=== PATIENT | female | born 1950 | race Caucasian/White ===

== ENCOUNTER 2017-06-19 00:54 | Inpatient (IN) | payer OTHER, MEDICAID ==
[2017-06-19] VITALS (8 sets, daily range): BP systolic 117–169; BP diastolic 60–75; Ht 172.7 cm; Wt 67.7 kg
[~2017-06-19] VITALS: Ht 172.7 cm; Wt 67.7 kg
[~2017-06-19 00:54] MED LIST: A/B OTIC15 ML; ANT12.5 PO; ASPIRIN81 MG PO; ATORVASTATIN CA40 M1 PO; COL250 PO; GABAPENTIN300 M2 PO; GLIPIZIDE5 MG PO; IBU-6600 MG PO; LIPI20 PO; LOSARTAN POTASS25 M1 PO; METFORMIN HCL1000 MG PO; METFORMIN HCL500 MG PO; NOVOLOG100 U/ML SC; PERCOCET1 TA3 PO; PRILOSEC20 MG PO
[2017-06-19 02:05] LABS: BASOPHIL % 0.5 % (0-2); PLATELET COUNT 338 x10^3mcL (130-400); RED CELL DISTRIBUTION WIDTH 13.6 % (11.5-14.5)
[2017-06-19 02:25] LABS: CARBON DIOXIDE 30.5 mmol/L (21-32); CHLORIDE SERUM 91 mmol/L (98-107); CREATININE SERUM 0.6 mg/dL (0.6-1.0); GFR1 > 60 mL/min; GLUCOSE SERUM 190 mg/dL (74-106); POTASSIUM SERUM 3.9 mmol/L (3.5-5.1); SODIUM SERUM 129 mmol/L (136-145)
[2017-06-19 02:29] LABS: ALKALINE PHOSPHATASE 93 U/L (46-116); ALT/SGPT 28 U/L (14-59); AST/SGOT 21 U/L (15-37); BILIRUBIN TOTAL 0.28 mg/dL (0.20-1.00); TOTAL PROTEIN, SERUM 7.5 g/dL (6.4-8.2)
[2017-06-19 02:35] LABS: ALBUMIN 3.1 g/dL (3.4-5.0)
[2017-06-19] MEDS ORDERED: PROVENTIL0.09 MG/A1 (03:13)
[2017-06-19 03:31] LABS: UA SPECIFIC GRAVITY 1.015 (1.005-1.035); microscopic required? YES; urine erythrocyte TRACE (NEGATIVE)
[2017-06-19] MEDS ORDERED: BENZONATATE200 MG PO (04:48)
[2017-06-19 05:09] LABS: MAGNESIUM 1.6 mg/dL (1.8-2.4); PHOSPHOROUS 3.7 mg/dL (2.5-4.9)
[2017-06-19 05:11] LABS: CHOLESTEROL/HDL RATIO 2.5
[2017-06-19 05:17] LABS: FREE T4 1.56 ng/dL (0.76-1.46); FREE THYROXINE INDEX 4.2 ug/dL (1.4-4.5); T4(THYROXINE) 10.7 ug/dL (4.7-13.3)
[2017-06-19 05:19] LABS: T3 TOTAL 1.04 ng/mL
[2017-06-19 19:21] LABS: CALCIUM 9.5 mg/dL (8.5-10.1); CARBON DIOXIDE 28.8 mmol/L (21-32); CHLORIDE SERUM 93 mmol/L (98-107); CREATININE SERUM 0.6 mg/dL (0.6-1.0); GFR1 > 60 mL/min; GLUCOSE SERUM 257 mg/dL (74-106); SODIUM SERUM 129 mmol/L (136-145)
[2017-06-20 05:03] VITALS: BP 131/62
[2017-06-20 06:38] LABS: BASOPHIL % 0.1 % (0-2); PLATELET COUNT 309 x10^3mcL (130-400)
[2017-06-20 07:18] LABS: CALCIUM 9.5 mg/dL (8.5-10.1); CARBON DIOXIDE 29.1 mmol/L (21-32); CHLORIDE SERUM 94 mmol/L (98-107); CREATININE SERUM 0.5 mg/dL (0.6-1.0); GFR1 > 60 mL/min; GLUCOSE SERUM 255 mg/dL (74-106); MAGNESIUM 1.8 mg/dL (1.8-2.4); POTASSIUM SERUM 4.7 mmol/L (3.5-5.1); SODIUM SERUM 130 mmol/L (136-145)
[2017-06-20 09:59] VITALS: BP 124/56
[2017-06-20 13:16] VITALS: BP 138/64
[2017-06-20 17:32] VITALS: BP 137/61
[2017-06-20 19:30] VITALS: BP 122/55
[2017-06-20 21:13] VITALS: BP 126/63
[2017-06-21 05:16] VITALS: BP 125/60
[2017-06-21 07:34] LABS: CALCIUM 8.7 mg/dL (8.5-10.1); CARBON DIOXIDE 28.7 mmol/L (21-32); CHLORIDE SERUM 95 mmol/L (98-107); CREATININE SERUM 0.5 mg/dL (0.6-1.0); GFR1 > 60 mL/min; GLUCOSE SERUM 158 mg/dL (74-106); PHOSPHOROUS 3.2 mg/dL (2.5-4.9); POTASSIUM SERUM 4.2 mmol/L (3.5-5.1); SODIUM SERUM 130 mmol/L (136-145)
[2017-06-21 07:35] LABS: PLATELET COUNT 370 x10^3mcL (130-400); RED CELL DISTRIBUTION WIDTH 13.1 % (11.5-14.5)
[2017-06-21 09:34] VITALS: BP 154/65
[2017-06-21 10:27] LABS: BAND NEUTROPHIL 5 % (0-10); BASOPHIL 0 % (0-2); MONOCYTE 10 % (0-7); SEGMENTED NEUTROPHILS 59 % (37-75)
[2017-06-21 13:26] VITALS: BP 147/74
[2017-06-21 16:38] VITALS: BP 130/54
[2017-06-21 20:30] VITALS: BP 164/58
[2017-06-22 05:14] VITALS: BP 122/55
[2017-06-22] MEDS ORDERED: LIPI10 PO (06:21)
[2017-06-22] MEDS ORDERED: COZ25 PO (06:23)
[2017-06-22] MEDS ORDERED: ECO81 PO (06:25)
[2017-06-22 06:40] LABS: BASOPHIL % 0.3 % (0-2); PLATELET COUNT 309 x10^3mcL (130-400); RED CELL DISTRIBUTION WIDTH 13.9 % (11.5-14.5)
[2017-06-22 07:11] LABS: CALCIUM 8.5 mg/dL (8.5-10.1); CARBON DIOXIDE 29.2 mmol/L (21-32); CHLORIDE SERUM 96 mmol/L (98-107); CREATININE SERUM 0.5 mg/dL (0.6-1.0); GFR1 > 60 mL/min; GLUCOSE SERUM 150 mg/dL (74-106); MAGNESIUM 1.6 mg/dL (1.8-2.4); PHOSPHOROUS 3.9 mg/dL (2.5-4.9); POTASSIUM SERUM 4.1 mmol/L (3.5-5.1); SODIUM SERUM 132 mmol/L (136-145)
[2017-06-22 09:30] VITALS: BP 122/55
[2017-06-22] MEDS ORDERED: THERA TABS1 TAB PO (09:32)
[2017-06-22] MEDS ORDERED: AMB5 PO (09:38)
[2017-06-22] MEDS ORDERED: MONTELUKAST SOD10 M1 PO (09:40)
[2017-06-22] MEDS ORDERED: LAC PO (09:43)
[2017-06-22] MEDS ORDERED: HUMALOG MIX 50/10 ML SC (09:48)
[2017-06-22] MEDS ORDERED: LEVAQUIN750 MG PO (09:50)
[2017-06-22] MEDS ORDERED: MEDDP PO (10:02)
[2017-06-22] MEDS ORDERED: GLU850 PO (10:06)
[2017-06-22] MEDS ORDERED: IBUPROFEN400 MG PO (10:08)
[2017-06-22 10:20] VITALS: BP 143/60
== END 2017-06-22 12:31 | disposition home or self-care (01) | DRG 190 ==
LOC: ED 00:54 → DU 03:10
PROVIDERS: Emergency Medicine; ADMIT Family Medicine
DX: J44.1 Chronic obstructive pulmonary disease with (acute) exacerbation (principal); J96.00 Acute respiratory failure, unspecified whether with hypoxia or hypercapnia; N17.0 Acute kidney failure with tubular necrosis; E87.1 Hypo-osmolality and hyponatremia; E44.0 Moderate protein-calorie malnutrition; F43.21 Adjustment disorder with depressed mood; R13.10 Dysphagia, unspecified; E83.42 Hypomagnesemia; E11.65 Type 2 diabetes mellitus with hyperglycemia; E11.51 Type 2 diabetes mellitus with diabetic peripheral angiopathy without gangrene; I25.2 Old myocardial infarction; Z68.21 Body mass index [BMI] 21.0-21.9, adult; Z79.4 Long term (current) use of insulin; Z79.82 Long term (current) use of aspirin; Z86.73 Personal history of transient ischemic attack (TIA), and cerebral infarction without residual deficits; Z63.4 Disappearance and death of family member
CPT/HCPCS: 36600; 83880; 84439; 92610-GN; 94150; C9113; J0456; J0696; J1817; J1885; J1956; J2930; J3475; J3490; J7030; J7613; J7620; J7626; J7644; Q0092

== ENCOUNTER 2017-06-30 12:35 | Inpatient (IN) | payer OTHER, MEDICAID ==
[~2017-06-30] VITALS: Ht 172.7 cm; Wt 84.5 kg
[~2017-06-30 12:35] MED LIST changes: +AMB5 PO; +BENZONATATE200 MG PO; +COZ25 PO; +ECO81 PO; +GLU850 PO; +HUMALOG MIX 50/10 ML SC; +IBUPROFEN400 MG PO; +LAC PO; +LEVAQUIN750 MG PO; +LIPI10 PO; +MEDDP PO; +MONTELUKAST SOD10 M1 PO; +PROVENTIL0.09 MG/A1; +THERA TABS1 TAB PO
[2017-06-30 13:14] LABS: BASOPHIL % 0.2 % (0-2); PLATELET COUNT 368 x10^3mcL (130-400); RED CELL DISTRIBUTION WIDTH 13.2 % (11.5-14.5)
[2017-06-30 14:02] LABS: ALBUMIN 3.4 g/dL (3.4-5.0); ALKALINE PHOSPHATASE 124 U/L (46-116); ALT/SGPT 32 U/L (14-59); AST/SGOT 25 U/L (15-37); BILIRUBIN TOTAL 0.5 mg/dL (0.20-1.00); CHLORIDE SERUM 85 mmol/L (98-107); CREATININE SERUM 0.5 mg/dL (0.6-1.0); GFR1 > 60 mL/min; GLUCOSE SERUM 179 mg/dL (74-106); POTASSIUM SERUM 3.7 mmol/L (3.5-5.1); TOTAL PROTEIN, SERUM 7.7 g/dL (6.4-8.2)
[2017-06-30 14:37] LABS: SODIUM SERUM 123 mmol/L (136-145)
[2017-06-30 17:39] LABS: MAGNESIUM 1.7 mg/dL (1.8-2.4); PHOSPHOROUS 3.5 mg/dL (2.5-4.9)
[2017-06-30 17:51] LABS: FREE T4 1.94 ng/dL (0.76-1.46); FREE THYROXINE INDEX 4.9 ug/dL (1.4-4.5); T4(THYROXINE) 12.2 ug/dL (4.7-13.3)
[2017-06-30 18:05] VITALS: BP 168/84
[2017-06-30 18:28] VITALS: BP 168/84
[2017-06-30 18:50] LABS: T3 TOTAL 0.89 ng/mL
[2017-06-30 21:05] VITALS: BP 148/68
[2017-07-01] VITALS (7 sets, daily range): BP systolic 115–193; BP diastolic 50–103
[2017-07-01 00:21] LABS: microscopic required? YES; urine erythrocyte 1+ (NEGATIVE)
[2017-07-01 00:29] LABS: AMPHETAMINE QUAL UR NONE DETECTED (NEG <=1000)
[2017-07-01 08:03] LABS: PLATELET COUNT 353 x10^3mcL (130-400); RED CELL DISTRIBUTION WIDTH 13.3 % (11.5-14.5)
[2017-07-01 08:20] LABS: CALCIUM 9.4 mg/dL (8.5-10.1); CARBON DIOXIDE 26.4 mmol/L (21-32); CHLORIDE SERUM 88 mmol/L (98-107); CREATININE SERUM 0.4 mg/dL (0.6-1.0); GFR1 > 60 mL/min; GLUCOSE SERUM 250 mg/dL (74-106); MAGNESIUM 1.8 mg/dL (1.8-2.4); PHOSPHOROUS 3.8 mg/dL (2.5-4.9); POTASSIUM SERUM 3.9 mmol/L (3.5-5.1)
[2017-07-01 08:22] LABS: SODIUM SERUM 124 mmol/L (136-145)
[2017-07-01 09:40] LABS: BASOPHIL % 0 % (0-2)
[2017-07-01 11:04] LABS: URIC ACID 2.4 mg/dL (2.6-6.0)
[2017-07-02 05:43] VITALS: BP 160/68
[2017-07-02 06:53] LABS: RED CELL DISTRIBUTION WIDTH 14.1 % (11.5-14.5)
[2017-07-02 07:30] LABS: CALCIUM 9.8 mg/dL (8.5-10.1); CARBON DIOXIDE 28.6 mmol/L (21-32); CHLORIDE SERUM 91 mmol/L (98-107); CREATININE SERUM 0.4 mg/dL (0.6-1.0); GFR1 > 60 mL/min; GLUCOSE SERUM 152 mg/dL (74-106); MAGNESIUM 1.9 mg/dL (1.8-2.4); PHOSPHOROUS 3.9 mg/dL (2.5-4.9); POTASSIUM SERUM 4.4 mmol/L (3.5-5.1)
[2017-07-02 07:51] LABS: SODIUM SERUM 122 mmol/L (136-145)
[2017-07-02 09:27] VITALS: BP 160/64
[2017-07-02 10:01] LABS: PLATELET COUNT 431 x10^3mcL (130-400)
[2017-07-02 12:29] VITALS: BP 170/85
[2017-07-02 15:16] LABS: BAND NEUTROPHIL 7 % (0-10); MONOCYTE 5 % (0-7); SEGMENTED NEUTROPHILS 84 % (37-75)
[2017-07-02 15:17] LABS: rbc morphology (normal/abnorm) NORMAL (NORMAL)
[2017-07-02 15:18] LABS: PLATELET MORPHOLOGY LARGE PLATELET SEEN
[2017-07-02 18:58] VITALS: BP 189/85
[2017-07-02 23:04] VITALS: BP 140/71
[2017-07-03] VITALS (16 sets, daily range): BP systolic 54–140; BP diastolic 27–78
[2017-07-03 02:55] LABS: CALCIUM 9.1 mg/dL (8.5-10.1); CARBON DIOXIDE 31.3 mmol/L (21-32); CHLORIDE SERUM 93 mmol/L (98-107); CREATININE SERUM 0.7 mg/dL (0.6-1.0); GFR1 > 60 mL/min; GLUCOSE SERUM 244 mg/dL (74-106); POTASSIUM SERUM 4.6 mmol/L (3.5-5.1); SODIUM SERUM 130 mmol/L (136-145)
[2017-07-03 05:18] LABS: PLATELET COUNT 359 x10^3mcL (130-400); RED CELL DISTRIBUTION WIDTH 13.8 % (11.5-14.5)
[2017-07-03 05:49] LABS: BASOPHIL % 0 % (0-2)
[2017-07-03 06:13] LABS: CALCIUM 9.1 mg/dL (8.5-10.1); CARBON DIOXIDE 26.7 mmol/L (21-32); CHLORIDE SERUM 93 mmol/L (98-107); CREATININE SERUM 0.8 mg/dL (0.6-1.0); GFR1 > 60 mL/min; GLUCOSE SERUM 291 mg/dL (74-106); MAGNESIUM 1.7 mg/dL (1.8-2.4); PHOSPHOROUS 3.6 mg/dL (2.5-4.9); POTASSIUM SERUM 4.1 mmol/L (3.5-5.1); SODIUM SERUM 130 mmol/L (136-145)
[2017-07-04] VITALS (19 sets, daily range): BP systolic 77–129; BP diastolic 44–57
[2017-07-04 05:44] LABS: PLATELET COUNT 260 x10^3mcL (130-400); RED CELL DISTRIBUTION WIDTH 13.8 % (11.5-14.5)
[2017-07-04 05:52] LABS: CALCIUM 8.5 mg/dL (8.5-10.1); CARBON DIOXIDE 28.7 mmol/L (21-32); CHLORIDE SERUM 95 mmol/L (98-107); CREATININE SERUM 0.7 mg/dL (0.6-1.0); GFR1 > 60 mL/min; GLUCOSE SERUM 260 mg/dL (74-106); MAGNESIUM 1.8 mg/dL (1.8-2.4); SODIUM SERUM 131 mmol/L (136-145)
[2017-07-04 05:53] LABS: POTASSIUM SERUM 2.8 mmol/L (3.5-5.1)
[2017-07-04 12:00] LABS: BAND NEUTROPHIL 23 % (0-10); BASOPHIL 0 % (0-2); METAMYELOCTE 1 % (0-2); MONOCYTE 6 % (0-7); SEGMENTED NEUTROPHILS 66 % (37-75)
[2017-07-04 12:01] LABS: PLATELET MORPHOLOGY N; rbc morphology (normal/abnorm) ABNORMAL (NORMAL)
[2017-07-04 16:31] LABS: CALCIUM 8.4 mg/dL (8.5-10.1); CARBON DIOXIDE 31.6 mmol/L (21-32); CHLORIDE SERUM 99 mmol/L (98-107); CREATININE SERUM 0.5 mg/dL (0.6-1.0); GFR1 > 60 mL/min; GLUCOSE SERUM 231 mg/dL (74-106); POTASSIUM SERUM 4.2 mmol/L (3.5-5.1); SODIUM SERUM 133 mmol/L (136-145)
[2017-07-05] VITALS (17 sets, daily range): BP systolic 95–135; BP diastolic 39–61
[2017-07-05 06:07] LABS: PLATELET COUNT 240 x10^3mcL (130-400); RED CELL DISTRIBUTION WIDTH 14.1 % (11.5-14.5)
[2017-07-05 06:09] LABS: CARBON DIOXIDE 32.8 mmol/L (21-32); CHLORIDE SERUM 98 mmol/L (98-107); CREATININE SERUM 0.6 mg/dL (0.6-1.0); GFR1 > 60 mL/min; GLUCOSE SERUM 310 mg/dL (74-106); POTASSIUM SERUM 3.8 mmol/L (3.5-5.1); SODIUM SERUM 133 mmol/L (136-145)
[2017-07-05 06:16] LABS: ALBUMIN 1.3 g/dL (3.4-5.0); BASOPHIL % 0 % (0-2)
[2017-07-06] VITALS (18 sets, daily range): BP systolic 107–177; BP diastolic 44–85
[2017-07-06 05:57] LABS: PLATELET COUNT 179 x10^3mcL (130-400); RED CELL DISTRIBUTION WIDTH 13.9 % (11.5-14.5)
[2017-07-06 06:12] LABS: CARBON DIOXIDE 25.9 mmol/L (21-32); CHLORIDE SERUM 106 mmol/L (98-107); CREATININE SERUM 0.4 mg/dL (0.6-1.0); GFR1 > 60 mL/min; GLUCOSE SERUM 243 mg/dL (74-106); SODIUM SERUM 139 mmol/L (136-145)
[2017-07-06 06:15] LABS: POTASSIUM SERUM 2.6 mmol/L (3.5-5.1)
[2017-07-06 10:52] LABS: BAND NEUTROPHIL 11 % (0-10); MONOCYTE 7 % (0-7); SEGMENTED NEUTROPHILS 79 % (37-75)
[2017-07-06 10:53] LABS: rbc morphology (normal/abnorm) NORMAL (NORMAL)
[2017-07-06 14:33] LABS: CALCIUM 8.5 mg/dL (8.5-10.1); CARBON DIOXIDE 32.9 mmol/L (21-32); CHLORIDE SERUM 101 mmol/L (98-107); CREATININE SERUM 0.9 mg/dL (0.6-1.0); GFR1 > 60 mL/min; GLUCOSE SERUM 319 mg/dL (74-106); POTASSIUM SERUM 4.3 mmol/L (3.5-5.1); SODIUM SERUM 136 mmol/L (136-145)
[2017-07-07] VITALS (18 sets, daily range): BP systolic 118–165; BP diastolic 52–84
[2017-07-07 06:05] LABS: CARBON DIOXIDE 33.2 mmol/L (21-32); CHLORIDE SERUM 101 mmol/L (98-107); CREATININE SERUM 0.8 mg/dL (0.6-1.0); GFR1 > 60 mL/min; GLUCOSE SERUM 291 mg/dL (74-106); POTASSIUM SERUM 3.6 mmol/L (3.5-5.1); SODIUM SERUM 138 mmol/L (136-145)
[2017-07-07 06:07] LABS: PLATELET COUNT 216 x10^3mcL (130-400); RED CELL DISTRIBUTION WIDTH 14.5 % (11.5-14.5)
[2017-07-07 06:15] LABS: BASOPHIL % 0 % (0-2)
[2017-07-08] VITALS (17 sets, daily range): BP systolic 77–138; BP diastolic 37–70
[2017-07-08 05:36] LABS: PLATELET COUNT 195 x10^3mcL (130-400)
[2017-07-08 06:00] LABS: RED CELL DISTRIBUTION WIDTH 14.8 % (11.5-14.5)
[2017-07-08 06:12] LABS: BAND NEUTROPHIL 20 % (0-10); BASOPHIL 0 % (0-2); METAMYELOCTE 2 % (0-2); MONOCYTE 2 % (0-7); SEGMENTED NEUTROPHILS 66 % (37-75); rbc morphology (normal/abnorm) ABNORMAL (NORMAL)
[2017-07-08 06:14] LABS: target cell (codocyte) 2+
[2017-07-08 08:24] LABS: CALCIUM 7.9 mg/dL (8.5-10.1); CARBON DIOXIDE 28.8 mmol/L (21-32); CHLORIDE SERUM 106 mmol/L (98-107); CREATININE SERUM 0.8 mg/dL (0.6-1.0); GFR1 > 60 mL/min; GLUCOSE SERUM 303 mg/dL (74-106); MAGNESIUM 1.8 mg/dL (1.8-2.4); PHOSPHOROUS 2.2 mg/dL (2.5-4.9); POTASSIUM SERUM 3.1 mmol/L (3.5-5.1); SODIUM SERUM 141 mmol/L (136-145)
[2017-07-09] VITALS (24 sets, daily range): BP systolic 64–121; BP diastolic 40–534
[2017-07-09 05:17] LABS: BASOPHIL % 0.1 % (0-2); PLATELET COUNT 216 x10^3mcL (130-400)
[2017-07-09 05:18] LABS: RED CELL DISTRIBUTION WIDTH 15.3 % (11.5-14.5)
[2017-07-09 05:21] LABS: CALCIUM 9.1 mg/dL (8.5-10.1); CARBON DIOXIDE 35.7 mmol/L (21-32); POTASSIUM SERUM 4.4 mmol/L (3.5-5.1)
[2017-07-10] VITALS (16 sets, daily range): BP systolic 91–144; BP diastolic 36–78; Ht 172.7 cm; Wt 84.5 kg
[2017-07-10 05:47] LABS: PLATELET COUNT 172 x10^3mcL (130-400)
[2017-07-10 05:58] LABS: CALCIUM 7.7 mg/dL (8.5-10.1); CARBON DIOXIDE 25.2 mmol/L (21-32); CREATININE SERUM 1.9 mg/dL (0.6-1.0); MAGNESIUM 1.7 mg/dL (1.8-2.4); PHOSPHOROUS 4.2 mg/dL (2.5-4.9); POTASSIUM SERUM 4.4 mmol/L (3.5-5.1)
[2017-07-10 06:03] LABS: BASOPHIL % 0 % (0-2); RED CELL DISTRIBUTION WIDTH 15.1 % (11.5-14.5)
[2017-07-11] VITALS (14 sets, daily range): BP systolic 87–131; BP diastolic 34–63
[2017-07-11 05:48] LABS: PLATELET COUNT 163 x10^3mcL (130-400); RED CELL DISTRIBUTION WIDTH 15.7 % (11.5-14.5)
[2017-07-11 05:49] LABS: BASOPHIL % 0 % (0-2)
[2017-07-11 05:55] LABS: CARBON DIOXIDE 26.2 mmol/L (21-32); CREATININE SERUM 2.9 mg/dL (0.6-1.0); PHOSPHOROUS 4.5 mg/dL (2.5-4.9); POTASSIUM SERUM 4.8 mmol/L (3.5-5.1)
== END 2017-07-11 18:45 | disposition expired | DRG 207 ==
LOC: ED 12:35 → DU 16:21 → IC 16:21 → DU 17:51 → IC 07-03 02:03
PROVIDERS: Emergency Medicine; Family Medicine; Student in an Organized Health Care Education/Training Program
PROC: 5A1955Z Respiratory Ventilation, Greater than 96 Consecutive Hours (ICD-10-PCS; principal; 2017-07-03)
PROC: 0BH17EZ Insertion of Endotracheal Airway into Trachea, Via Natural or Artificial Opening (ICD-10-PCS; 2017-07-03)
PROC: 05HM33Z Insertion of Infusion Device into Right Internal Jugular Vein, Percutaneous Approach (ICD-10-PCS; 2017-07-03)
PROC: 0W9900Z Drainage of Right Pleural Cavity with Drainage Device, Open Approach (ICD-10-PCS; 2017-07-09)
DX: J69.0 Pneumonitis due to inhalation of food and vomit (principal); J96.00 Acute respiratory failure, unspecified whether with hypoxia or hypercapnia; N17.0 Acute kidney failure with tubular necrosis; E43 Unspecified severe protein-calorie malnutrition; J44.1 Chronic obstructive pulmonary disease with (acute) exacerbation; E87.1 Hypo-osmolality and hyponatremia; J93.12 Secondary spontaneous pneumothorax; B95.62 Methicillin resistant Staphylococcus aureus infection as the cause of diseases classified elsewhere; I48.91 Unspecified atrial fibrillation; I95.9 Hypotension, unspecified; K21.9 Gastro-esophageal reflux disease without esophagitis; E83.42 Hypomagnesemia; E11.65 Type 2 diabetes mellitus with hyperglycemia; E78.5 Hyperlipidemia, unspecified; G47.00 Insomnia, unspecified; I10 Essential (primary) hypertension; Z68.23 Body mass index [BMI] 23.0-23.9, adult; Z79.82 Long term (current) use of aspirin; Z79.4 Long term (current) use of insulin; Z16.24 Resistance to multiple antibiotics; Z66 Do not resuscitate; Z51.5 Encounter for palliative care
CPT/HCPCS: 36556; 36600; 83880; 84439; 87116; 87206; 87804; A4628; A7042; C1729; C9113; J0132; J0282; J0330; J0360; J1642; J1644; J1815; J1940; J1956; J2060; J2250; J2270; J2370; J2405; J2543; J2704; J2920; J2930; J3370; J3475; J3480; J3490; J7030; J7040; J7060; J7512; J7613; J7620; J7626; J7644; Q0092; Q9967